=== PATIENT | male | born 1990 | race Caucasian/White ===

== ENCOUNTER 2016-12-19 10:01 | Emergency (ER) | payer BC ==
[2016-12-19 10:58] VITALS: BP 129/86
--- NOTE | 2016-12-19 11:15 | UC ---
Throat Pain/Nasal Mario HPI - HPI Summary HPI Summary: Pt presents with c/o sore throat, cough, nasal congestion, cough with bright, red thin, small streak of blood this morning - History of Current Complaint Stated Complaint: SORE THROAT, CONGESTION, FEVER Time Seen by Provider: 12/19/16 10:49 Hx Obtained From: Patient Onset/Duration: Sudden Onset, Lasting Days - 2, Still Present Severity: Mild Cough: Nonproductive Associated Signs & Symptoms: Positive: Dysphagia, Fever - Epiglottits Risk Factors Epiglottis Risk Factors: Negative - Allergies/Home Medications Allergies/Adverse Reactions: Allergies Allergy/AdvReac Type Severity Reaction Status Date / Time No Known Allergies Allergy Verified 12/19/16 10:52 Home Medications: Home Medications diPHENhydraMINE PO* [Benadryl PO 25 MG TAB*] 25 mg PO Q6H PRN 12/19/16 [History Confirmed 12/19/16] guaiFENesin LIQ* [Robitussin*] 10 ml PO Q4H PRN 12/19/16 [History Confirmed 08/01] PMH/Surg Hx/FS Hx/Imm Hx Previously Healthy: Yes Other History Of: Negative For: HIV, Hepatitis B, Hepatitis C - Surgical History Surgical History: None - Family History Known Family History: Negative: Cardiac Disease, Hypertension, Diabetes - Social History Occupation: Student - [employer] Lives: With Family Alcohol Use: Weekly Alcohol Amount: few times a week Substance Use Type: None Smoking Status (MU): Former Smoker Type: Cigarettes When Did the Patient Quit Smoking/Using Tobacco: 3 weeks ago - Immunization History Most Recent Influenza Vaccination: none Review of Systems Constitutional: Fever Skin: Negative Eyes: Negative ENT: Sore Throat Respiratory: Cough Cardiovascular: Negative Gastrointestinal: Negative Genitourinary: Negative Motor: Negative Neurovascular: Negative Musculoskeletal: Negative Neurological: Negative Psychological: Negative All Other Systems Reviewed And Are Negative: Yes Physical Exam Triage Information Reviewed: Yes Appearance: Well-Appearing Vital Signs: Initial Vital Signs Temp 99.8 F 12/19/16 10:55 Pulse 69 12/19/16 10:55 Resp 16 12/19/16 10:55 BP 129/86 12/19/16 10:55 Pulse Ox 98 12/19/16 10:55 Vital Signs Reviewed: Yes Eye Exam: Normal ENT Exam: Other ENT: Positive: Nasal congestion, Other: - PND Dental Exam: Normal Neck exam: Normal Respiratory Exam: Normal Cardiovascular Exam: Normal Musculoskeletal Exam: Normal Neurological Exam: Normal Psychological Exam: Normal Skin Exam: Normal Throat Pain/Nasal Course/Dx - Differential Dx/Diagnosis Differential Diagnosis/HQI/PQRI: Influenza, URI Provider Diagnoses: viral syndrome. cough Discharge - Discharge Plan Condition: Stable Disposition: HOME Patient Education Materials: Upper Respiratory Infection (ED) Referrals: [facility] [Outside] Non Staff,Doctor [Primary Care Provider] - If Needed Additional Instructions: Please follow up with your PCP or return to clinic as needed.
== END 2016-12-19 11:27 | disposition home or self-care (01) ==
LOC: UCCORT 10:01
DX: B34.9 Viral infection, unspecified (principal); R05 Cough; Z87.891 Personal history of nicotine dependence
CPT/HCPCS: 87651; 99211; G0463

== ENCOUNTER 2017-02-07 10:57 | Emergency (ER) | payer BC ==
[2017-02-07 12:36] VITALS: BP 124/80
--- NOTE | 2017-02-07 12:52 | UC ---
Eye Complaint HPI - HPI Summary HPI Summary: LEFT EYE REDNESS X 1 DAY + DISCHARGE, NO EYE PAIN , NO CHANGE IN VISION + COLD SX - History of Current Complaint Chief Complaint: UCEye Stated Complaint: EYE COMPLAINT Time Seen by Provider: 02/07/17 12:43 Hx Obtained From: Patient Onset/Duration: Gradual Onset, Lasting Days - 1, Still Present Timing: Constant Severity Initially: Moderate Severity Currently: Moderate Location of Injury: Conjunctiva Aggravating Factor(s): Nothing Alleviating Factor(s): Nothing Associated Signs And Symptoms: Positive: Drainage (Purulent) - LEFT EYE - Allergies/Home Medications Allergies/Adverse Reactions: Allergies Allergy/AdvReac Type Severity Reaction Status Date / Time No Known Allergies Allergy Verified 02/07/17 12:36 Home Medications: Home Medications Finasteride (ALOPECIA) (NF) [Propecia (NF)] 1 mg PO DAILY 02/07/17 [History Confirmed 02/07/17] PMH/Surg Hx/FS Hx/Imm Hx Previously Healthy: Yes Other History Of: Negative For: HIV, Hepatitis B, Hepatitis C - Surgical History Surgical History: None - Family History Known Family History: Negative: Cardiac Disease, Hypertension, Diabetes - Social History Alcohol Use: Weekly Alcohol Amount: few times a week Substance Use Type: None Smoking Status (MU): Former Smoker Type: Cigarettes When Did the Patient Quit Smoking/Using Tobacco: 3 weeks ago - Immunization History Most Recent Influenza Vaccination: none Review of Systems Constitutional: Negative Skin: Negative Eyes: Drainage, Eye Redness - LEFT EYE ENT: Negative Is Patient Immunocompromised?: No All Other Systems Reviewed And Are Negative: Yes Physical Exam Triage Information Reviewed: Yes Appearance: Well-Appearing, No Pain Distress, Well-Nourished Vital Signs: Initial Vital Signs Temp 97.8 F 02/07/17 12:34 Pulse 73 02/07/17 12:34 Resp 14 02/07/17 12:34 BP 124/80 02/07/17 12:34 Pulse Ox 100 02/07/17 12:34 Vital Signs Reviewed: Yes Eyes: Positive: Conjunctiva Inflamed - LEFT EYE, Discharge - LEFT EYE ENT: Positive: Normal ENT inspection, Hearing grossly normal, Pharynx normal Neck exam: Normal Neck: Positive: Supple, Nontender, No Lymphadenopathy Respiratory: Positive: Chest non-tender, Lungs clear, Normal breath sounds Cardiovascular: Positive: RRR, No Murmur, Pulses Normal Skin Exam: Normal Eye Complaint Course/Dx - Differential Dx/Diagnosis Provider Diagnoses: CONJUNCTIVITIS LEFT EYE Discharge - Discharge Plan Condition: Stable Disposition: HOME Prescriptions: Tobramycin 0.3% OPHTH.[place]* 1 drop LEFT EYE Q4H #1 btl Patient Education Materials: Conjunctivitis (ED) Forms: *School Release Referrals: Non Staff,Doctor [Primary Care Provider] - If Needed
== END 2017-02-07 12:54 | disposition home or self-care (01) ==
LOC: UCCORT 10:57
DX: H10.9 Unspecified conjunctivitis (principal); Z87.891 Personal history of nicotine dependence
CPT/HCPCS: 99212; G0463

== ENCOUNTER 2017-06-13 12:34 | Emergency (ER) | payer BC ==
[2017-06-13 13:39] VITALS: BP 119/68
--- NOTE | 2017-06-13 14:00 | UC ---
Truncal Trauma HPI - HPI Summary HPI Summary: right side rib pain x 1 week injury to his right ribs as a friend lift him up pain with movement, no sob , no cough - History Of Current Complaint Chief Complaint: UCUpperExtremity Stated Complaint: RT SIDE RIB AREA PAIN Time Seen by Provider: 06/13/17 13:47 Hx Obtained From: Patient Onset/Duration: Sudden Onset, Lasting Days - 7, Still Present Onset Of Pain: Immediate Severity Initially: Moderate Severity Currently: Moderate Pain Intensity: 7 Mechanism Of Injury: Blunt Trauma Aggravating Factor(s): Movement Alleviating factor(s): Rest Associated Signs And Symptoms: Negative: SOB, Chest Pain, Cough, Hematuria, Abdominal Pain, Fever, Nausea, Vomiting - Allergies/Home Medications Allergies/Adverse Reactions: Allergies Allergy/AdvReac Type Severity Reaction Status Date / Time No Known Allergies Allergy Verified 06/13/17 13:39 PMH/Surg Hx/FS Hx/Imm Hx Previously Healthy: Yes Other History Of: Negative For: HIV, Hepatitis B, Hepatitis C - Surgical History Surgical History: None - Family History Known Family History: Negative: Cardiac Disease, Hypertension, Diabetes - Social History Alcohol Use: Weekly Alcohol Amount: few times a week Substance Use Type: None Smoking Status (MU): Former Smoker Type: Cigarettes When Did the Patient Quit Smoking/Using Tobacco: 3 weeks ago - Immunization History Most Recent Influenza Vaccination: none Review of Systems Constitutional: Negative Skin: Negative Eyes: Negative ENT: Negative Respiratory: Negative Cardiovascular: Negative Is Patient Immunocompromised?: No All Other Systems Reviewed And Are Negative: Yes Physical Exam Triage Information Reviewed: Yes Appearance: Well-Appearing, No Pain Distress, Well-Nourished Vital Signs: Initial Vital Signs Temp 98.6 F 06/13/17 13:35 Pulse 64 06/13/17 13:35 Resp 18 06/13/17 13:35 BP 119/68 06/13/17 13:35 Pulse Ox 99 06/13/17 13:35 Vital Signs Reviewed: Yes Eyes: Positive: Conjunctiva Clear ENT: Positive: Normal ENT inspection, Hearing grossly normal, Pharynx normal Neck: Positive: Supple, Nontender, No Lymphadenopathy Respiratory: Positive: Chest non-tender, Lungs clear, Normal breath sounds, No respiratory distress Cardiovascular: Positive: RRR, No Murmur, Pulses Normal Abdominal Exam: Normal Abdomen Description: Positive: Soft. Negative: CVA Tenderness (R), CVA Tenderness (L), Distended, Guarding Bowel Sounds: Positive: Present Musculoskeletal: Positive: Other: - right ribs: no swelling, + tenderness right 5,6,7,8 anterior ribs Diagnostics - Laboratory Diagnostic Studies Completed/Ordered: xray right ribs: no fractue seen Truncal Trauma Course/Dx - Differential Dx/Diagnosis Provider Diagnoses: contusion right side ribs Discharge - Discharge Plan Condition: Stable Disposition: HOME Patient Education Materials: Rib Contusion (ED) Referrals: Non Staff,Doctor [Primary Care Provider] - If Needed
--- NOTE | 2017-06-13 14:15 | RAD ---
Indication: RIGHT side rib pain for 2 weeks following wrestling. Comparison: No relevant prior exams available on the [facility] PACS for comparison. Technique: Dual energy PA chest and 3 dedicated RIGHT rib views Report: Subjacent to the skin marker indicating the site of clinical concern there is subtle cortical contour irregularity of the eighth rib anterolaterally which may reflect a nondisplaced fracture. No additional abnormality of the RIGHT ribs evident. Negative for pleural effusion or pneumothorax. Clear lungs. The heart, pulmonary vasculature, and mediastinal contours are unremarkable. IMPRESSION: Suggestion of a nondisplaced fracture involving the RIGHT eighth rib anterolaterally. Negative for associated pleural effusion or pneumothorax.
== END 2017-06-13 14:40 | disposition home or self-care (01) ==
LOC: UCCORT 12:34
DX: S20.211A Contusion of right front wall of thorax, initial encounter (principal); Z87.891 Personal history of nicotine dependence; X50.9XXA Other and unspecified overexertion or strenuous movements or postures, initial encounter; Y92.9 Unspecified place or not applicable
CPT/HCPCS: 99211; G0463